=== PATIENT | male | born 1990 | race Asian ===

== ENCOUNTER 2018-04-25 11:47 | Observation (INO) | payer BC ==
[2018-04-25 13:13] LABS: Protime INR 0.93
[2018-04-25 13:14] LABS: Absolute Lymphocytes (CBC) 3.9 K/uL (0.7-4.9); Absolute Monocytes 0.8 K/uL (0.1-1.3); Absolute Neutrophil 9.8 K/uL (1.8-8.0); Basophils % 0.3 % (0-1.3); Eosinophils % 0.8 % (0-4.4); Hematocrit 48.7 % (39.6-49.0); Lymphocytes % 26.4 % (15.3-44.8); MCH 25.3 pg (27.0-35.0); MCV 76.8 fL (80-100); MPV 9.2 fL (7.6-11.3); Monocytes % 5.6 % (3.3-12.3); RBC Red Blood Cell Count 6.34 M/uL (4.33-5.43)
[2018-04-25 13:34] LABS: Barbiturates NEGATIVE (NEGATIVE); Benzodiazepines NEGATIVE (NEGATIVE); Cocaine NEGATIVE (NEGATIVE); METHAMPHETAM NEGATIVE (NEGATIVE); Methadone NEGATIVE (NEGATIVE); Opiates NEGATIVE (NEGATIVE); Phencyclidine NEGATIVE (NEGATIVE); THC Cannibis NEGATIVE (NEGATIVE)
[2018-04-25 13:35] LABS: Urine Blood NEGATIVE (NEG); Urine Glucose NEGATIVE (NEG); Urine Protein NEGATIVE (NEG); Urine Specific Gravity 1.025 (1.005-1.030)
[2018-04-25 13:43] LABS: ALT/SGPT 51 U/L (12-78); AST/SGOT 32 U/L (15-37); BUN Blood Urea Nitrogen 13 mg/dL (7-18); Bicarbonate 25 mmol/L (21-32); Glucose Level 120 mg/dL (74-106); Potassium 3.8 mmol/L (3.5-5.1); Sodium Level 137 mmol/L (136-145)
[2018-04-25 13:44] LABS: Albumin 4.3 g/dL (3.4-5.0); Alkaline Phosphatase 80 U/L (45-117); Bilirubin Direct < 0.1 mg/dL (0-0.2); Bilirubin Total 0.2 mg/dL (0.2-1.0); Lipase 201 U/L (73-393); Magnesium 2.5 mg/dL (1.8-2.4); NT PRO-BNP 45 pg/mL (<125); Protein, Total 7.8 g/dL (6.4-8.2); Troponin (Emerg Dept Use Only) < 0.02 ng/mL (0.0-0.045)
--- NOTE | 2018-04-25 14:08 | RAD REPORT ---
EXAM DESCRIPTION: RAD - Chest Single View - 04/25/2018 1:26 pm CLINICAL HISTORY: Right-sided chest pain COMPARISON: None. TECHNIQUE: AP portable chest image was obtained 1316 hours . FINDINGS: Lungs are clear. Heart and vasculature are normal. No measurable pleural effusion and no p neumothorax. No acute bony abnormality seen. No acute aortic findings suspected. IMPRESSION: No acute cardiopulmonary process.
[2018-04-25] MEDS ORDERED: ASPIRIN 81 MG CHEWABLE TABLET ONE (14:13)
[2018-04-25] MEDS ORDERED: MORPHINE 4 MG/ML SYR ONE (14:14)
[2018-04-25] MEDS ORDERED: NA CHLORIDE 0.9% 500 ML ONE (14:14)
[2018-04-25] MEDS ORDERED: ONDANSETRON 4 MG/2 ML VIAL ONE (14:14)
[2018-04-25] MEDS ORDERED: FAMOTIDINE 20 MG/2 ML VIAL IV ONE (14:14)
--- NOTE | 2018-04-25 14:43 | RAD REPORT ---
EXAM DESCRIPTION: CT - Angio Aorta For Dissection - 04/25/2018 2:18 pm CLINICAL HISTORY: Right-sided chest pain radiating to the back COMPARISON: Chest films same date TECHNIQUE: Dynamically enhanced 3 mm thick images of the chest were obtained during administration o f approximately 150mL Isovue 370 IV contrast. Coronal and oblique MIP reconstruction images were gene rated and reviewed. Exam utilizes a protocol to evaluate the pulmonary arterial tree. All CT scans are performed using dose optimization technique as appropriate and may include automated exposure control or mA/KV adjustment according to patient size. FINDINGS: No pulmonary emboli are identified. The aorta as imaged shows no acute or suspicious finding. No pericardial thickening or effusion. No infiltrate or mass in the lung parenchyma. No pleural effusion or pleural thickening. No mediastinal or hilar suspicious masses. No chest wall masses or abnormal axillary lymphadenopathy. Limited upper abdomen imaging shows borderline or mild fatty infiltration of the liver. No other acut e or significant upper abdomen finding. PE protocol does not optimally imaged the upper abdomen struc tures. IMPRESSION: No pulmonary emboli identified. No other significant or suspicious findings.
--- NOTE | 2018-04-25 14:52 | ER ---
Nurse's Notes [facility] Name: Isreal Santos Age: 27 yrs Sex: Male : 1990 Arrival Date: 04/25/2018 Time: 11:51 Bed 8 Private MD: Becca Ramos K Diagnosis: Chest pain, unspecified Presentation: 04/25 11:59 Presenting complaint: Patient states: R sided chest pain that radiates to back that ph began this morning, also c/o slight SOB, denies palpitations, N/V. Transition of care: patient was not received from another setting of care. Onset of symptoms was April 25, 2018. Care prior to arrival: None. 11:59 Method Of Arrival: Ambulatory ph 11:59 Acuity: DEVIKA 3 ph 12:00 Risk Assessment: Do you want to hurt yourself or someone else? Patient reports no iw desire to harm self or others. Initial Sepsis Screen: Does the patient meet any 2 criteria? No. Patient's initial sepsis screen is negative. Does the patient have a suspected source of infection? No. Patient's initial sepsis screen is negative. Historical: - Allergies: 12:01 No Known Allergies; ph - Home Meds: 12:01 None [Active]; ph - PMHx: 12:01 None; ph - PSHx: 12:01 None; ph - Immunization history:: Adult Immunizations unknown. - Social history:: Smoking status: Patient uses tobacco products, smokes one pack cigarettes per day. - Ebola Screening: : No symptoms or risks identified at this time. - Family history:: not pertinent. Screenin:10 Abuse screen: Denies threats or abuse. Denies injuries from another. Nutritional iw screening: No deficits noted. Tuberculosis screening: No symptoms or risk factors identified. Fall Risk IV access (20 points). Assessment: 13:08 General: Appears in no apparent distress. comfortable, Behavior is calm, cooperative. iw Pain: Complains of pain in anterior aspect of right upper chest Pain radiates to right scapular area Pain began 4 hours ago. Is continuous. Neuro: Level of Consciousness is awake, alert, obeys commands, Oriented to person, place, time, situation, Moves all extremities. Full function. Cardiovascular: Heart tones S1 S2 present Capillary refill < 3 seconds in bilateral fingers Patient's skin is warm and dry. Respiratory: Airway is patent Respiratory effort is even, unlabored. GI: Abdomen is flat, non-distended. Derm: Skin is intact, is healthy with good turgor. 14:30 Reassessment: Patient appears in no apparent distress at this time. Patient and/or iw family updated on plan of care and expected duration. Pain level reassessed. Patient is alert, oriented x 3, equal unlabored respirations, skin warm/dry/pink. pt states chest pain has improved just feels like pressure, 1/10 Patient states feeling better. 15:55 Reassessment: Patient appears in no apparent distress at this time. Patient and/or iw family updated on plan of care and expected duration. Pain level reassessed. Patient is alert, oriented x 3, equal unlabored respirations, skin warm/dry/pink. Patient denies pain at this time. Patient states feeling better. Patient states symptoms have improved. Vital Signs: 12:00 BP 133 / 89; Pulse 82; Resp 18; Temp 98.1; Pulse Ox 99% on R/A; Weight 77.56 kg; Height ph 5 ft. 7 in. (170.18 cm); Pain 1/10; 14:31 BP 123 / 85; Pulse 63; Resp 16; Pulse Ox 98% on R/A; Pain 1/10; iw 12:00 Body Mass Index 26.78 (77.56 kg, 170.18 cm) ph ED Course: 11:51 Patient arrived in ED. as 11:51 Becca Ramos MD is Private Physician. as 12:00 Triage completed. ph 12:01 Arm band placed on. ph 12:03 Patient placed in waiting room, Patient notified of wait time. EKG completed in triage. ph Results shown to MD. 12:06 EKG done, by ED staff, reviewed by Kaiden Hull MD. dh3 12:24 Kaiden Hull MD is Attending Physician. dieudonne 12:30 Patient has correct armband on for positive identification. security monitor on. Pulse iw ox on. NIBP on. 13:08 Mirela Swenson, NINA is Primary Nurse. iw 13:10 Initial lab(s) drawn, by md, sent to lab. Inserted saline lock: 20 gauge in right iw antecubital area, using aseptic technique. Blood collected. 13:26 X-ray completed. Portable x-ray completed in exam room. Patient tolerated procedure az well. 13:26 XRAY Chest (1 view) In Process Unspecified. EDMS 14:[address] via stretcher. nj 14:15 Echocardiogram with doppler completed by equipment engineering technician. 14:18 CT completed. Patient tolerated procedure well. Patient moved back from CT. nj 14:18 CT Aorta for Dissection In Process Unspecified. EDMS 14:32 Repeat lab(s) drawn. by md, sent to lab. Patient maintains SpO2 saturation greater than iw 95% on room air. 14:51 Denis Badillo MD is Hospitalizing Provider. [facility] 15:02 EKG done, by collision repair technician. reviewed by Kaiden Hull MD Repeat EKG. at1 17:58 No provider procedures requiring assistance completed. Patient admitted, IV remains in iw place. Administered Medications: 14:10 Drug: NS 0.9% 1000 ml Route: IV; Rate: 125 ml/hr; Site: right antecubital; iw 14:10 Drug: Aspirin 162 mg Route: PO; iw 14:10 Not Given (Patient Refused): Pepcid 20 mg IVP once iw 14:10 Not Given (Patient Refused): morphine 2 mg IVP once iw 14:10 Not Given (Patient Refused): morphine 2 mg IVP once iw 14:10 Not Given (Patient Refused): Zofran 4 mg IVP once; over 2 minutes iw 16:15 Drug: Lopressor 25 mg Route: PO; iw 17:00 Follow up: Response: No adverse reaction iw 16:15 Drug: Lovenox 1 mg/kg Route: Sub-Q; Site: right lower abdomen; iw 17:15 Follow up: Response: No adverse reaction iw 16:37 Not Given (Other Intervention Used): Zocor 40 mg PO once iw 16:37 Drug: Lipitor 20 mg Route: PO; iw 17:00 Follow up: Response: No adverse reaction iw 17:15 Not Given (Patient Refused): morphine 2 mg IVP once iw 17:16 Not Given (Patient Refused): Zofran 4 mg IVP once; over 2 minutes iw Outcome: 14:51 Decision to Hospitalize by Provider. dieudonne 17:58 Admitted to Tele accompanied by tech, via wheelchair, room 228, Report called to iw NINA James 17:58 Condition: good 17:58 Discharge instructions given to patient, family, Instructed on the need for admit. 18:07 Patient left the ED. iw Signatures: Dispatcher [employer] EDMI Kaiden Hull MD MD cha Martinez, Amelia as Williams, Irene, RN RN Dyan Romo, food mixer assembler EKG Tat1 Josefina Ortiz Patricia, RN RN ph Jordan, Kane Santos, [place] [id number] Heather Cherry
--- NOTE | 2018-04-25 14:52 | EDPHYS ---
Physician Documentation [facility] Name: Isreal Santos Age: 27 yrs Sex: Male : 1990 Arrival Date: 04/25/2018 Time: 11:51 Bed 8 Private MD: Becca Ramos K ED Physician Kaiden uHll HPI: 04/25 14:46 This 27 yrs old Male presents to ER via Ambulatory with complaints of Chest Pain, dieudonne Back Pain. 14:46 The patient or guardian reports chest pain that is located primarily in the anterior dieudonne chest wall, right. The pain radiates to Associated signs and symptoms: The patient has no apparent associated signs or symptoms. The chest pain is described as sharp. Modifying factors: The symptoms are alleviated by nothing. the symptoms are aggravated by nothing. Severity of pain: At its worst the pain was moderate in the emergency department the pain has improved moderately. The patient has not experienced similar symptoms in the past. Historical: - Allergies: 12:01 No Known Allergies; ph - Home Meds: 12:01 None [Active]; ph - PMHx: 12:01 None; ph - PSHx: 12:01 None; ph - Immunization history:: Adult Immunizations unknown. - Social history:: Smoking status: Patient uses tobacco products, smokes one pack cigarettes per day. - Ebola Screening: : No symptoms or risks identified at this time. - Family history:: not pertinent. ROS: 14:46 Constitutional: Negative for fever, chills, and weight loss, Eyes: Negative for injury, dieudonne pain, redness, and discharge, ENT: Negative for injury, pain, and discharge, Neck: Negative for injury, pain, and swelling, Respiratory: Negative for shortness of breath, cough, wheezing, and pleuritic chest pain, Abdomen/GI: Negative for abdominal pain, nausea, vomiting, diarrhea, and constipation, Back: Negative for injury and pain, : Negative for injury, bleeding, discharge, and swelling, MS/Extremity: Negative for injury and deformity, Skin: Negative for injury, rash, and discoloration, Neuro: Negative for headache, weakness, numbness, tingling, and seizure, Psych: Negative for depression, anxiety, suicide ideation, homicidal ideation, and hallucinations, Allergy/Immunology: Negative for hives, rash, and allergies, Endocrine: Negative for neck swelling, polydipsia, polyuria, polyphagia, and marked weight changes, Hematologic/Lymphatic: Negative for swollen nodes, abnormal bleeding, and unusual bruising. 14:46 Cardiovascular: Positive for chest pain. Exam: 14:46 Constitutional: This is a well developed, well nourished patient who is awake, alert, dieudonne and in no acute distress. Head/Face: Normocephalic, atraumatic. Eyes: Pupils equal round and reactive to light, extra-ocular motions intact. Lids and lashes normal. Conjunctiva and sclera are non-icteric and not injected. Cornea within normal limits. Periorbital areas with no swelling, redness, or edema. ENT: Nares patent. No nasal discharge, no septal abnormalities noted. Tympanic membranes are normal and external auditory canals are clear. Oropharynx with no redness, swelling, or masses, exudates, or evidence of obstruction, uvula midline. Mucous membranes moist. Neck: Trachea midline, no thyromegaly or masses palpated, and no cervical lymphadenopathy. Supple, full range of motion without nuchal rigidity, or vertebral point tenderness. No Meningismus. Chest/axilla: Normal chest wall appearance and motion. Nontender with no deformity. No lesions are appreciated. Cardiovascular: Regular rate and rhythm with a normal S1 and S2. No gallops, murmurs, or rubs. Normal PMI, no JVD. No pulse deficits. Respiratory: Lungs have equal breath sounds bilaterally, clear to auscultation and percussion. No rales, rhonchi or wheezes noted. No increased work of breathing, no retractions or nasal flaring. Abdomen/GI: Soft, non-tender, with normal bowel sounds. No distension or tympany. No guarding or rebound. No evidence of tenderness throughout. Back: No spinal tenderness. No costovertebral tenderness. Full range of motion. Male : Normal genitalia with no discharge or lesions. Skin: Warm, dry with normal turgor. Normal color with no rashes, no lesions, and no evidence of cellulitis. MS/ Extremity: Pulses equal, no cyanosis. Neurovascular intact. Full, normal range of motion. Neuro: Awake and alert, GCS 15, oriented to person, place, time, and situation. Cranial nerves II-XII grossly intact. Motor strength 5/5 in all extremities. Sensory grossly intact. Cerebellar exam normal. Normal gait. Psych: Awake, alert, with orientation to person, place and time. Behavior, mood, and affect are within normal limits. 14:46 Musculoskeletal/extremity: Exam is negative for DVT Exam: No signs of deep vein thrombosis. no pain, no swelling, no tenderness, negative Homans' sign noted on exam, no appreciated bluish discoloration, no erythema, no increased warmth. Vital Signs: 12:00 BP 133 / 89; Pulse 82; Resp 18; Temp 98.1; Pulse Ox 99% on R/A; Weight 77.56 kg; Height ph 5 ft. 7 in. (170.18 cm); Pain 1/10; 14:31 BP 123 / 85; Pulse 63; Resp 16; Pulse Ox 98% on R/A; Pain 1/10; iw 12:00 Body Mass Index 26.78 (77.56 kg, 170.18 cm) ph MDM: 12:24 Patient medically screened. [facility] 14:48 Data reviewed: vital signs, nurses notes, lab test result(s), EKG, radiologic studies, [facility] CT scan, plain films. 04/25 12:23 Order name: Basic Metabolic Panel; Complete Time: 13:44 [facility] 04/25 12:23 Order name: CBC with Diff; Complete Time: 13:44 [facility] 04/25 12:23 Order name: LFT's; Complete Time: 13:44 dieudonne 04/25 12:23 Order name: Magnesium; Complete Time: 13:44 [facility] 04/25 12:23 Order name: NT PRO-BNP; Complete Time: 13:44 [facility] 04/25 12:23 Order name: PT-INR; Complete Time: 13:44 [facility] 04/25 12:23 Order name: Troponin (emerg Dept Use Only); Complete Time: 13:44 dieudonne 04/25 12:23 Order name: Lipase; Complete Time: 13:44 [facility] 04/25 12:23 Order name: UDS; Complete Time: 13:45 [facility] 04/25 13:04 Order name: Urine Dipstick--Ancillary (enter results) em1 04/25 14:15 Order name: Troponin (emerg Dept Use Only): now; Complete Time: 15:04 [facility] 04/25 14:59 Order name: Basic Metabolic Panel EDMS 04/25 14:59 Order name: Basic Metabolic Panel EDMS 04/25 14:59 Order name: CBC with Automated Diff [facility] 04/25 12:23 Order name: XRAY Chest (1 view); Complete Time: 14:33 [facility] 04/25 12:23 Order name: Echo w/ Doppler [facility] 04/25 13:47 Order name: CT Aorta for Dissection; Complete Time: 14:45 [facility] 04/25 14:59 Order name: CBC with Automated Diff [facility] 04/25 14:59 Order name: Troponin I [facility] 04/25 14:59 Order name: Troponin I [facility] 04/25 14:59 Order name: Troponin I [facility] 04/25 15:06 Order name: Lipid Profile [facility] 04/25 12:23 Order name: EKG; Complete Time: 12:24 [facility] 04/25 12:23 Order name: Cardiac monitoring; Complete Time: 14:20 [facility] 04/25 12:23 Order name: EKG - Nurse/Tech; Complete Time: 13:15 [facility] 04/25 12:23 Order name: IV Saline Lock; Complete Time: 13:15 [facility] 04/25 12:23 Order name: Labs collected and sent; Complete Time: 13:15 [facility] 04/25 12:23 Order name: O2 Per Protocol; Complete Time: 13:15 [facility] 04/25 12:23 Order name: O2 Sat Monitoring; Complete Time: 13:15 [facility] 04/25 13:05 Order name: Urine Dipstick-Ancillary (obtain specimen); Complete Time: 13:05 [facility] 04/25 14:59 Order name: CONS Physician Consult [facility] 04/25 14:59 Order name: CONS Physician Consult [facility] 04/25 14:59 Order name: Regular [facility] 04/25 14:59 Order name: EKG Electrocardiogram [facility] 04/25 14:59 Order name: EKG Electrocardiogram [facility] 04/25 14:59 Order name: EKG Electrocardiogram [facility] 04/25 14:59 Order name: EKG Electrocardiogram [facility] Administered Medications: 14:10 Drug: NS 0.9% 1000 ml Route: IV; Rate: 125 ml/hr; Site: right antecubital; iw 14:10 Drug: Aspirin 162 mg Route: PO; iw 14:10 Not Given (Patient Refused): Pepcid 20 mg IVP once iw 14:10 Not Given (Patient Refused): morphine 2 mg IVP once iw 14:10 Not Given (Patient Refused): morphine 2 mg IVP once iw 14:10 Not Given (Patient Refused): Zofran 4 mg IVP once; over 2 minutes iw 16:15 Drug: Lopressor 25 mg Route: PO; iw 17:00 Follow up: Response: No adverse reaction iw 16:15 Drug: Lovenox 1 mg/kg Route: Sub-Q; Site: right lower abdomen; iw 17:15 Follow up: Response: No adverse reaction iw 16:37 Not Given (Other Intervention Used): Zocor 40 mg PO once iw 16:37 Drug: Lipitor 20 mg Route: PO; iw 17:00 Follow up: Response: No adverse reaction iw 17:15 Not Given (Patient Refused): morphine 2 mg IVP once iw 17:16 Not Given (Patient Refused): Zofran 4 mg IVP once; over 2 minutes iw Disposition: 04/25/18 14:51 Hospitalization ordered by Denis Badillo for Observation. Preliminary diagnosis is Chest pain, unspecified. - Bed requested for Telemetry/MedSurg (observation). - Status is Observation. iw - Condition is Stable. - Problem is new. - Symptoms have improved. UTI on Admission? No Signatures: Dispatcher [employer] EDMS Mary Graff Corey, MD MD cha Williams, Irene, NINA RN iw Gucci Quinn Judie Shah RN RN ph Corrections: (The following items were deleted from the chart) 17:25 14:51 Hospitalization Ordered by Denis Badillo MD for Observation. Preliminary diagnosis bd is Chest pain, unspecified. Bed requested for Telemetry/MedSurg (observation). Status is Observation. Condition is Stable. Problem is new. Symptoms have improved. UTI on Admission? No. dieudonne 18:07 17:25 04/25/2018 14:51 Hospitalization Ordered by Denis Badillo MD for Observation. iw Preliminary diagnosis is Chest pain, unspecified. Bed requested for Telemetry/MedSurg (observation). Status is Observation. Condition is Stable. Problem is new. Symptoms have improved. UTI on Admission? No. bd
[2018-04-25] MEDS ORDERED: ACETAMINOPHEN 500 MG TAB PO PRN (14:54)
[2018-04-25] MEDS ORDERED: MORPHINE 4 MG/ML SYR IV PRN (14:54)
[2018-04-25] MEDS ORDERED: ONDANSETRON 4 MG/2 ML VIAL IV PRN (14:54)
[2018-04-25] MEDS: ENOXAPARIN 80 MG/0.8 ML SQ SCH ×2 (15:00→20:03)
--- NOTE | 2018-04-25 15:47 | ECHO ---
HEIGHT: 5 ft 7 in WEIGHT: 170 lb oz DATE OF STUDY: 04/25/[address]: Kaiden Hull MD 2-DIMENSIONAL: YES M.MODE: YES DOPPLER: YES COLOR FLOW: YES TDS: NO PORTABLE: NO DEFINITY: NO BUBBLE STUDY: NO DIAGNOSIS: CHEST PAIN CARDIAC HISTORY: CATHERIZATION: NO SURGERY: NO PROSTHETIC VALVE: NO PACEMAKER: NO MEASUREMENTS (cm) DIASTOLIC (NORMALS) SYSTOLIC (NORMALS) IVSd 0.9 (0.6-1.2) LA Diam 3.5 (1.9-4.0) LVEF 58% LVIDd 4.3 (3.5-5.7) LVIDs 3.0 (2.0-3.5) %FS 31% LVPWd 1.0 (0.6-1.2) Ao Diam 2.7 (2.0-3.7) 2 DIMENSIONAL ASSESSMENT: RIGHT ATRIUM: NORMAL LEFT ATRIUM: NORMAL RIGHT VENTRICLE: NORMAL LEFT VENTRICLE: NORMAL TRICUSPID VALVE: NORMAL MITRAL VALVE: NORMAL PULMONIC VALVE: NORMAL AORTIC VALVE: NORMAL PERICARDIAL EFFUSION: NONE AORTIC ROOT: NORMAL LEFT VENTRICULAR WALL MOTION: NORMAL DOPPLER/COLOR FLOW: PHYSIOLOGIC TRICUSPID REGURGITATION. NORMAL RIGHT VENTRICULAR SYSTOLIC PRESSURE. COMMENTS: NORMAL 2D ECHOCARDIOGRAM WITH DOPPLER. TECHNOLOGIST: Roxanne BAJWA
--- NOTE | 2018-04-25 15:48 | EKG ---
Test Date: 2018-04-25 Test Time: 12:04:26 Bed And Breakfast Operator: NILO MEASUREMENT RESULTS: Intervals: Rate: 68 FL: 134 QRSD: 88 QT: 378 QTc: 401 [place]: P: 38 FL: 134 QRS: 53 T: 29 INTERPRETIVE STATEMENTS: Normal sinus rhythm with sinus arrhythmia Normal ECG No previous ECG available for comparison Electronically Signed On 04-25-18 15:47:13 CDT by Wesly Magallanes
[2018-04-25] MEDS ORDERED: METOPROLOL TAR 25 MG TAB ONE (16:13)
[2018-04-25] MEDS ORDERED: ENOXAPARIN 80 MG/0.8 ML SQ ONE (16:14)
[2018-04-25] MEDS ORDERED: ATORVASTATIN 20 MG TAB ONE (16:40)
[2018-04-25] MEDS ORDERED: ATORVASTATIN 20 MG TAB PO ONE (17:00)
[2018-04-25] MEDS: METOPROLOL TAR 25 MG TAB PO SCH (18:00)
[2018-04-25] MEDS: FAMOTIDINE 20 MG/2 ML VIAL IV SCH (20:04)
[2018-04-25 20:18] LABS: HDL Cholesterol 31 mg/dL (40-60); LDL Cholesterol, Calculated 85 (<130); Troponin I < 0.02 ng/mL (0.0-0.045)
--- NOTE | 2018-04-25 20:49 | P.HP ---
Certification for Inpatient Patient admitted to: Observation With expected LOS: <2 Midnights Practitioner: I am a practitioner with admitting privileges, knowledge of patient current condition, hospital course, and medical plan of care. Services: Services provided to patient in accordance with Admission requirements found in Title 42 Section 412.3 of the Code of Federal Regulations Patient History Date of Service: 04/25/18 Reason for admission: RIGHT SIDE CHEST PAIN AND NECK PAIN History of Present Illness: ANIYAH IS A HEALTHY MAN WITH SMOKING HISTORY OF PACK A DAY COMES WITH R SIDE CHEST PAIN WITH RADIATION TO R SIDE OF NECK AND BACK. PAIN NOW HAS RESOLVED. HIS WBC COUNT IS MILD HIGH. Allergies No Known Allergies Allergy (Unverified 04/25/18 15:33) Home Medications: NK [No Home Meds] 04/25/18 - Social History Smoking Status: Current every day smoker Alcohol use: No CD- Drugs: No Caffeine use: Yes Review of Systems 10-point ROS is otherwise unremarkable Physical Examination - Vital Signs Temperature: 98.1 F Blood Pressure: 118/83 Pulse: 54 Respirations: 18 Pulse Ox (%): 98 - Physical Exam General: Alert, In no apparent distress HEENT: Atraumatic, PERRLA, Mucous membr. moist/pink, EOMI, Sclerae nonicteric Neck: Supple, 2+ carotid pulse no bruit, No LAD, Without JVD or thyroid abnormality Respiratory: Clear to auscultation bilaterally, Normal air movement Cardiovascular: Regular rate/rhythm, Normal S1 S2 Gastrointestinal: Normal bowel sounds, No tenderness Musculoskeletal: No tenderness Integumentary: No rashes Neurological: Normal gait, Normal speech, Normal strength at 5/5 x4 extr, Normal tone, Normal affect Lymphatics: No axilla or inguinal lymphadenopathy - Studies Laboratory Data (last 24 hrs) 04/25/18 12:55: PT 11.0, INR 0.93 04/25/18 12:55: WBC 14.7 H, Hgb 16.0, Hct 48.7, Plt Count 216 04/25/18 12:55: Sodium 137, Potassium 3.8, BUN 13, Creatinine 1.20, Glucose 120 H, Magnesium 2.5 H, Total Bilirubin 0.2, AST 32, ALT 51, Alkaline Phosphatase 80 , Lipase 201 Assessment and Plan - Problems (Diagnosis) (1) Chest pain Current Visit: Yes Status: Acute Plan: YOUNG AGE SMOKER. CARDIAC ISSUES ARE LESS LIKELY. HE NEEDS TO QUIT SMOKING AND I HAVE ADVISED HOW. HE KNOWS THE COMPLICATIONS OF SMOKING. (2) Leukocytosis Current Visit: Yes Status: Acute Plan: SONOGRAM OF ABDOMEN GB INFECTION OR STONES CAN GIVE PAIN ON RIGHT UPPER SIDE OF BODY. - Advance Directives Does patient have a Living Will: No Does patient have a Durable POA for Healthcare: No
[2018-04-25] MEDS: CIPROFLOXACIN 400mg IV 400 MG/200 ML BAG IV SCH (21:20)
--- NOTE | 2018-04-26 02:57 | CON ---
Date of Consultation: 04/25/2018 Reason For Consultation: Chest pain. History Of Present Illness: Mr. Santos is a 27-year-old who was admitted for chest pain that is sh maryellen, pleuritic, radiating to the right back. No nausea, vomiting, diaphoresis, PND, orthopnea, pedal edema, palpitations, or syncope. His workup so far has been negative including a chest x-ray, echoc ardiogram, EKG. He had a white count of 14,700, otherwise everything else looked normal. Past Medical History: Negative. Family History: Negative. Allergies: NONE. Medications At Home: None. Review of Systems: Positive for high stress level. Social History: Positive for excessive use of caffeine and energy drinks. Physical Examination: Vital Signs: Stable, afebrile. HEENT: Negative. Neck: Supple. No bruit. Chest: Clear. Cardiac: Regular rhythm and rate. No murmurs, gallops, or rubs. Abdomen: Benign. Extremities: No clubbing, cyanosis, or edema. Diagnostic Data: As stated earlier. Impression And Plan: Atypical chest pain, most likely musculoskeletal or pleuritic. The patient has a very low cardiac risk profile, although he does smoke. He is still at very low risk at this age. He was advised not to use much caffeine and energy drinks because he does occasionally have some pal pitations. One thing he did mention was kind of interesting that he had an episode of some headache, dizziness, and loss of hearing on 1 side, this may have been secondary to hypertension, but was not documented. He has a stress test that is ordered for tomorrow and we will see what that shows prior to making final decisions. If his symptoms reoccur certainly from dizziness and hearing loss standpo int, I will suggest he sees Neurology. FRENCH/HUSSAIN Voice ID: [id number] Report ID: [id number]
[2018-04-26] MEDS: METOPROLOL TAR 25 MG TAB PO SCH (05:21)
[2018-04-26 06:02] LABS: Absolute Lymphocytes (CBC) 3.8 K/uL (0.7-4.9); Absolute Neutrophil 5.4 K/uL (1.8-8.0); Basophils % 0.3 % (0-1.3); Eosinophils % 1.3 % (0-4.4); Hematocrit 49.6 % (39.6-49.0); Lymphocytes % 36.7 % (15.3-44.8); MCH 25.4 pg (27.0-35.0); MCV 76.9 fL (80-100); MPV 8.9 fL (7.6-11.3); Monocytes % 9.3 % (3.3-12.3); RBC Red Blood Cell Count 6.44 M/uL (4.33-5.43)
[2018-04-26 06:19] LABS: Potassium 4.5 mmol/L (3.5-5.1)
--- NOTE | 2018-04-26 07:02 | EKG ---
Test Date: 2018-04-25 Test Time: 14:57:37 Product Introduction Manager: PETRA MEASUREMENT RESULTS: Intervals: Rate: 58 CO: 130 QRSD: 90 QT: 414 QTc: 406 [place]: P: 36 CO: 130 QRS: 55 T: 22 INTERPRETIVE STATEMENTS: Sinus bradycardia with sinus arrhythmia Nonspecific ST and T wave abnormality Abnormal ECG Compared to ECG 04/25/2018 12:04:26 ST (T wave) deviation now present Sinus rhythm no longer present Electronically Signed On 04-26-18 07:01:37 CDT by Wesly Magallanes
[2018-04-26] MEDS: ENOXAPARIN 80 MG/0.8 ML SQ SCH (08:51)
[2018-04-26] MEDS: CIPROFLOXACIN 400mg IV 400 MG/200 ML BAG IV SCH (08:51)
[2018-04-26] MEDS: FAMOTIDINE 20 MG/2 ML VIAL IV SCH (08:52)
[2018-04-26] MEDS ORDERED: NICOTINE 14 MG/PAT TD SCH (09:00)
[2018-04-26] MEDS ORDERED: ASPIRIN EC 81 MG TAB PO SCH (09:00)
--- NOTE | 2018-04-26 09:15 | RAD REPORT ---
EXAM DESCRIPTION: US - Abdomen Exam Complete - 04/26/2018 7:50 am CLINICAL HISTORY: Abdominal pain COMPARISON: April 25, 2018 cat scan FINDINGS: The liver has an increased echotexture. A 2 centimeter hypo to isoechoic structure is pres ent within the right lobe. A gallstone is not seen. The gallbladder wall is not thickened. The biliary tree is normal caliber. The pancreas is normal in size and echotexture The right kidney measures 12 centimeters with a normal echotexture. The left kidney measures 11 centimeters with a normal echotexture. The spleen measures 9 centimeters. The abdominal aorta and inferior vena cava appear unremarkable IMPRESSION: Increased hepatic echotexture consistent with fatty infiltration 2 centimeter hypo to isoechoic structure within the right lobe of the liver probably represents an ar ea of focal fatty sparing. A mass is considered less likely. It is recommended that the patient have a followup ultrasound in 3 months to assess stability
--- NOTE | 2018-04-26 13:00 | P.DS ---
Admission Date: 04/25/18 Discharge Date: 04/26/18 Disposition: ROUTINE DISCHARGE Discharge Condition: FAIR Reason for Admission: RIGHT SIDE CHEST PAIN AND NECK PAIN - Problems (1) Chest pain Onset Date: 04/26/18 Current Visit: Yes Status: Acute (2) Leukocytosis Onset Date: 04/26/18 Current Visit: Yes Status: Acute Brief History of Present Illness: ANIYAH IS A HEALTHY MAN WITH SMOKING HISTORY OF PACK A DAY COMES WITH R SIDE CHEST PAIN WITH RADIATION TO R SIDE OF NECK AND BACK. PAIN NOW HAS RESOLVED. HIS WBC COUNT IS MILD HIGH. MR. JESSICA HAS ATYPICAL PAIN. PAIN HAS RESOLVED. HE HAS NO SYMPTOMS. GB SHOWS NO STONES OR THICKENING. HE HAS FATTY LIVER AND A LESION O LIVER THAT NEEDS FU WITH GI OR GAMMA OPERATOR. THIS CAN BE DONE OUTPATIENT. I HAVE TOLD HIM TO TALK TO DR RAMOS AND TAKE MY NOTE TO HER. HE CAN DO MORE WORK UP LIKE HIDA SCAN AND ST TEST IF PAIN CONTINUES. HE WILL QUIT SMOKING WITH USE OF PATCHES. Vital Signs/Physical Exam: Temp Pulse Resp BP Pulse Ox 97.6 F 66 20 120/84 99 04/26/18 08:00 04/26/18 08:00 04/26/18 08:00 04/26/18 08:00 04/26/18 08:00 Laboratory Data at Discharge: WBC 10.3 K/uL (4.3-10.9) D 04/26/18 05:42 Hgb 16.4 g/dL (13.6-17.9) 04/26/18 05:42 Hct 49.6 % (39.6-49.0) H 04/26/18 05:42 Plt Count 200 K/uL (152-406) 04/26/18 05:42 PT 11.0 SECONDS (9.5-12.5) 04/25/18 12:55 INR 0.93 04/25/18 12:55 Sodium 139 mmol/L (136-145) 04/26/18 05:42 Potassium 4.5 mmol/L (3.5-5.1) 04/26/18 05:42 BUN 15 mg/dL (7-18) 04/26/18 05:42 Creatinine 1.30 mg/dL (0.55-1.3) 04/26/18 05:42 Glucose 101 mg/dL (74-106) 04/26/18 05:42 Magnesium 2.5 mg/dL (1.8-2.4) H 04/25/18 12:55 Total Bilirubin 0.2 mg/dL (0.2-1.0) 04/25/18 12:55 AST 32 U/L (15-37) 04/25/18 12:55 ALT 51 U/L (12-78) 04/25/18 12:55 Alkaline Phosphatase 80 U/L (45-117) 04/25/18 12:55 Troponin I < 0.02 ng/mL (0.0-0.045) 04/25/18 19:40 Triglycerides 245 mg/dL (<150) H 04/25/18 19:40 Cholesterol 165 mg/dL (<200) 04/25/18 19:40 HDL Cholesterol 31 mg/dL (40-60) L 04/25/18 19:40 Cholesterol/HDL Ratio 5.32 04/25/18 19:40 Lipase 201 U/L (73-393) 04/25/18 12:55 Home Medications: NK [No Home Meds] 04/25/18 Patient Discharge Instructions: PLEASE TAKE THIS COPY TO DR. RAMOS. YOU MAY HAVE DYSFUNCTIONAL GALL BLADDER AND IF PAIN CONTINUES YOU REPORT TO DR. RAMOS OR A SURGEON RECOMMENDED BY HER. SONOGRAM SHOWS FATTY LIVER AND A SMALL SHADOW ON LIVER. THIS NEEDS FU BY DR RAMOS. SEE HER THIS WEEK FOR LETTER TO WORK. Followup: Becca Ramos MD [Primary Care Provider] -
--- NOTE | 2018-04-26 13:55 | EKG ---
Test Date: 2018-04-26 Test Time: 09:04:07 Electrical Instrument Maker: LILLY MEASUREMENT RESULTS: Intervals: Rate: 63 AK: 120 QRSD: 74 QT: 384 QTc: 392 [place]: P: 42 AK: 120 QRS: 62 T: 19 INTERPRETIVE STATEMENTS: Sinus rhythm with marked sinus arrhythmia Nonspecific T wave abnormality Abnormal ECG Compared to ECG 04/25/2018 14:57:37 T-wave abnormality now present Sinus bradycardia no longer present ST (T wave) deviation no longer present Electronically Signed On 04-26-18 13:53:12 CDT by Sorin South
== END 2018-04-26 13:15 | disposition home or self-care (01) ==
LOC: ER 11:47 → ERHOLD 14:52 → 2ND 18:01
PROVIDERS: ADMIT Internal Medicine; ATTEND Internal Medicine
DX: R07.89 Other chest pain (principal); D72.829 Elevated white blood cell count, unspecified; F17.210 Nicotine dependence, cigarettes, uncomplicated; K76.0 Fatty (change of) liver, not elsewhere classified; K76.9 Liver disease, unspecified
CPT/HCPCS: 36415; 71045; 71275; 74175; 76700; 80048; 80061; 80076; 80307; 81003; 83690; 83735; 83880; 84484; 85025; 85610; 93005; 93306; 96372; 99285; G0378; J0744; J1650; J2405; Q9967

== ENCOUNTER 2021-06-27 02:16 | Emergency (ER) | payer BC, SELFPAY ==
--- OUTSIDE RECORDS SUMMARY | 2021-06-27 02:19 | XMS REPORT | Continuity of Care Document ---
:1990 Author Organization [facility] t Address [address] [place] [address] [address]. River[address] [place] [address] Care Team Providers Name Role Phone Jesus Otero Primary Care Physician Samuel SCHUMACHER, H Attending Clinician Only, Test Attending Clinician Unavailable Juan SCHUMACHER, Michael Attending Clinician JUAN, Michael Attending Clinician Unavailable Doctor Unassigned, Name Attending Clinician Unavailable Problems This patient has no known problems. Allergies, Adverse Reactions, Alerts Allergy Allergy Status Severity Reaction(s) Onset Inactive Treating Comm ents Source Name Type Date Date Clinician NO KNOWN Drug Active Univers ALLERGIE Class ity of [facility] Social History Social Habit Start Date Stop Date Quantity Comments Source Sex Assigned At [birth year] [facility] 00:00:00 00:00:00 [facility] Smoking Status Start Date Stop Date Source Unknown if ever smoked [facility] Medications This patient has no known medications. Procedures Procedure Date / Time Performed Performing Clinician [facility] e ASSIGNMENT OF BENEFITS 2021-05-21 14:22:39 Doctor Unassigned, No [facility] Encounters Start End Encounter Admission Attending Care Care Encounter Source Date/Time Date/Time Type Type Clinicians Facility Department ID 2021-05-23 2021-05-23 Letter ARLEY Baker [id number] Univers 00:00:00 00:00:00 (Out) Nicholas FIORE [id number] i [facility] [id number] Justin as [phone] [address] 2021-05-21 2021-05-21 Laboratory Only, Adc [facility] [id number] Univers 08:45:03 09:00:03 Only Neo Martinez [id number] ity of [place] [id number] [place] [facility] [id number] [facility] [address] 2021-05-21 2021-05-21 Outpatient R [facility]AN [facility] [id number] Univers 08:00:00 08:00:00 ENO ity of [facility] 2021-05-21 2021-05-21 Letter ARLEY Baker [id number] Univers 00:00:00 00:00:00 (Out) Nicholas FIORE [id number] i ty of [facility] [id number] Justin as [id number] [facility] [address] 2021-05-21 2021-05-21 Orders Doctor ARLEY [id number] Univers 00:00:00 00:00:00 Only UnassignedADEBAYO [id number] ity of [place] [facility] [id number] Justin as [phone] [facility] [address] Results This patient has no known results.
[2021-06-27] MEDS ORDERED: IBUPROFEN 400 MG TAB ONE (06:03)
[2021-06-27] MEDS ORDERED: LIDOCAINE 1% 20 ML MDV ONE (06:03)
[2021-06-27] MEDS ORDERED: TETANUS & DIPHTHERIA TOX,ADULT 0.5 ML VIAL ONE (06:03)
--- NOTE | 2021-06-27 07:27 | EDPHYS ---
Physician Documentation [facility] Name: Isreal Santos Age: 30 yrs Sex: Male : 1990 Arrival Date: 06/27/2021 Time: 02:31 Bed 24 Private MD: ED Physician Poncho Castro HPI: 06/27 05:35 This 30 yrs old Male presents to ER via Ambulatory with complaints of Hand Injury.7 05:35 The patient or guardian reports injury, a laceration, irregular. The complaints affect mh7 the right hand. 05:35 Context: The problem was sustained at a Recreational facility, resulted from using own 7 fist to strike, Boxing game. 05:35 Onset: The symptoms/episode began/occurred this morning, today, at 01:00. Modifying mh7 factors: The symptoms are alleviated by nothing, the symptoms are aggravated by nothing. Associated signs and symptoms: Pertinent negatives: cyanosis distally, decreased sensation distally, fever, nausea, numbness distally, tingling distally, vomiting. Severity of symptoms: At their worst the symptoms were mild, earlier today, in the emergency department the symptoms are unchanged. Historical: - Allergies: 03:34 No Known Allergies; bb - Immunization history:: Adult Immunizations up to date, Pfizer x 2. - Social history:: Smoking status: Patient reports the use of cigarette tobacco products, denies chronic smoking, but will smoke occasionally. ROS: 05:35 Constitutional: Negative for fever, chills, and weight loss, Eyes: Negative for injury, mh7 pain, redness, and discharge, ENT: Negative for injury, pain, and discharge, Neck: Negative for injury, pain, and swelling, Cardiovascular: Negative for chest pain, palpitations, and edema, Respiratory: Negative for shortness of breath, cough, wheezing, and pleuritic chest pain, Abdomen/GI: Negative for abdominal pain, nausea, vomiting, diarrhea, and constipation, Back: Negative for injury and pain, : Negative for injury, bleeding, discharge, and swelling, Neuro: Negative for headache, weakness, numbness, tingling, and seizure, Psych: Negative for depression, anxiety, suicide ideation, homicidal ideation, and hallucinations, Allergy/Immunology: Negative for hives, rash, and allergies, Endocrine: Negative for neck swelling, polydipsia, polyuria, polyphagia, and marked weight changes, Hematologic/Lymphatic: Negative for swollen nodes, abnormal bleeding, and unusual bruising. Exam: 05:35 Constitutional: This is a well developed, well nourished patient who is awake, alert, mh7 and in no acute distress. Head/Face: Normocephalic, atraumatic. Neuro: Awake and alert, GCS 15, oriented to person, place, time, and situation. Cranial nerves II-XII grossly intact. Motor strength 5/5 in all extremities. Sensory grossly intact. Cerebellar exam normal. Normal gait. Psych: Awake, alert, with orientation to person, place and time. Behavior, mood, and affect are within normal limits. 05:35 Musculoskeletal/extremity: Extremities: noted in the Right hand, base of fifth digit: mh7 laceration, pain, tenderness, ROM: intact in all extremities, Circulation is intact in all extremities. Sensation intact. Compartment Syndrome exam of affected extremity: is normal. no numbness, no tingling, no sensation deficit, no palor, no weak pulses, Joints: All joints appear normal with full range of motion. Weight bearing: able to fully bear weight, without difficulty. 05:35 Skin: injury, laceration(s), the wound is approximately 2.5 cm(s), with a depth of mh7 0.2 cm(s), of the Right hand, base of fifth digit, that can be described as no foreign body, irregular, without bleeding. Vital Signs: 03:30 BP 143 / 88; Pulse 101; Resp 16 S; Temp 98.3(O); Pulse Ox 100% on R/A; Weight 78.47 kg bb (R); Height 5 ft. 8 in. (172.72 cm) (R); Pain 2/10; 08:19 BP 137 / 79; Pulse 81; Resp 17; Temp 98.5; Pulse Ox 99% ; bp 03:30 Body Mass Index 26.30 (78.47 kg, 172.72 cm) bb Laceration: 07:18 Wound Repair of 2cm ( 0.8in ) subcutaneous laceration to dorsal aspect of proximal jmm phalanx of right little finger. Distal neuro/vascular/tendon intact. Anesthesia: Local anesthetic administered with 2 mls of 1% lidocaine. Wound prep: Simple cleansing with betadine by nv. Skin closed with 4 5-0 Prolene using simple sutures and sterile technique. Patient tolerated well. MDM: 06:12 Patient medically screened. [facility] 07:19 Data reviewed: vital signs, nurses notes. Counseling: I had a detailed discussion with adonis the patient and/or guardian regarding: the historical points, exam findings, and any diagnostic results supporting the discharge/admit diagnosis, radiology results, the need for outpatient follow up, to return to the emergency department if symptoms worsen or persist or if there are any questions or concerns that arise at home. ED course: Patient denies fight bite. Will cover patient with antibiotics. Patient given strict return precautions for infection. Patient otherwise will follow with PCP or return to the ED for suture removal.. 06/27 03:37 Order name: XRAY Hand RIGHT 3 View 06/27 07:27 Order name: Finger Splint; Complete Time: 08:16 [facility] Administered Medications: 06:04 Drug: Motrin (ibuprofen) 800 mg Route: PO; bb 07:21 Follow up: Response: No adverse reaction bp 06:05 Drug: Tetanus-Diphtheria Toxoid Adult 0.5 ml {Career Technical Education Instructor: [employer]. Exp: bb 11/08/2022. Lot #: [id number]. } Route: IM; Site: right deltoid; 07:22 Follow up: Response: No adverse reaction bp 07:21 Drug: Lidocaine (1 %) 20 ml Volume: 20 ml; Route: Infiltration; bp Disposition: 19:25 Co-signature as Attending Physician, Poncho Castro MD. mh7 Disposition Summary: 06/27/21 07:27 Discharge Ordered Location: Home [facility] Condition: Stable [facility] Diagnosis - Finger Laceration [facility] Followup: [facility] - With: Private Physician - When: 7 - 10 days - Reason: Recheck today's complaints, Continuance of care, Staple/Suture removal, Re-evaluation by your physician Discharge Instructions: - Discharge Summary Sheet [facility] - Laceration Care, Adult [facility] Forms: - Medication Reconciliation Form [facility] - Thank You Letter [facility] - Antibiotic Education [facility] - Prescription Opioid Use [facility] Prescriptions: - Augmentin 875-125 mg Oral Tablet - take 1 tablet by ORAL route every 12 hours for 10 days; 20 tablet; Refills: 0, [facility] Product Selection Permitted Signatures: Dispatcher [employer] Author Hub EDMS MicAgustin buckley PA PA jmm Ballard, Brenda RN RN bb Leeroy Sanchez RN RN Poncho Torres MD MD mh7 Corrections: (The following items were deleted from the chart) 05:38 05:35 Context: The problem was sustained [facility]7
--- NOTE | 2021-06-27 07:27 | ER ---
Nurse's Notes [facility] Name: Isreal Santos Age: 30 yrs Sex: Male : 1990 Arrival Date: 06/27/2021 Time: 02: Bed 24 Private MD: Diagnosis: Finger Laceration Presentation: 06/27 03:30 Chief complaint: Patient states: he was at a bar playing a boxing game and injured his bb right hand earlier tonight. Coronavirus screen: At this time, the client does not indicate any symptoms associated with coronavirus-19. Ebola Screen: No symptoms or risks identified at this time. Initial Sepsis Screen: Does the patient meet any 2 criteria? No. Patient's initial sepsis screen is negative. Does the patient have a suspected source of infection? No. Patient's initial sepsis screen is negative. Risk Assessment: Do you want to hurt yourself or someone else? Patient reports no desire to harm self or others. Onset of symptoms was June 27, 2021. 03:30 Method Of Arrival: Ambulatory bb 03:30 Acuity: DEVIKA 3 bb Triage Assessment: 03:34 General: Appears in no apparent distress. Behavior is calm, cooperative. Pain: bb Complains of pain in right hand. Neuro: Level of Consciousness is awake, alert, obeys commands, Oriented to person, place, time, situation. Cardiovascular: Capillary refill < 3 seconds Patient's skin is warm and dry. Respiratory: Airway is patent Respiratory effort is even, unlabored. GI: No signs and/or symptoms were reported involving the gastrointestinal system. Derm: Skin is dry, Skin is normal, Skin temperature is warm. Musculoskeletal: laceration to right hand. Injury Description: blunt trauma. Historical: - Allergies: 03:34 No Known Allergies; bb - Immunization history:: Adult Immunizations up to date, Pfizer x 2. - Social history:: Smoking status: Patient reports the use of cigarette tobacco products, denies chronic smoking, but will smoke occasionally. Screenin:19 Abuse screen: Denies threats or abuse. Denies injuries from another. Nutritional bp screening: No deficits noted. Tuberculosis screening: No symptoms or risk factors identified. Fall Risk None identified. Assessment: 05:10 Reassessment: PT AMBULATORY FROM TRIAGE. bp 08:19 Reassessment: PT D/C HOME AMBULATORY, DX WITH FINGER LACERATION. bp Vital Signs: 03:30 BP 143 / 88; Pulse 101; Resp 16 S; Temp 98.3(O); Pulse Ox 100% on R/A; Weight 78.47 kg bb (R); Height 5 ft. 8 in. (172.72 cm) (R); Pain 2/10; 08:19 BP 137 / 79; Pulse 81; Resp 17; Temp 98.5; Pulse Ox 99% ; bp 03:30 Body Mass Index 26.30 (78.47 kg, 172.72 cm) bb ED Course: 02:31 Patient arrived in ED. ja2 03:33 Triage completed. bb 03:34 Arm band placed on Patient placed in an exam room, on a stretcher. bb 04:49 XRAY Hand RIGHT 3 View In Process Unspecified. EDMS 05:11 Poncho Castro MD is Attending Physician. [facility] 06:03 Agustin Bianchi PA is PHCP. [facility] 07:20 Leeroy Sanchez, RN is Primary Nurse. bp 08:00 Assist provider with laceration repair on dorsal aspect of proximal phalanx of right bp little finger that was 2.5 cm. or less using sutures. Set up tray. Performed by Agustin MALAVE Dressed with Malinda, Patient tolerated well. 08:18 Patient did not have IV access during this emergency room visit. bp 08:19 Patient has correct armband on for positive identification. Bed in low position. Call bp light in reach. Side rails up X2. 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 Exp: bb 11/08/2022. Lot #: [id number]. } Route: IM; Site: right deltoid; 07:22 Follow up: Response: No adverse reaction bp 07:21 Drug: Lidocaine (1 %) 20 ml Volume: 20 ml; Route: Infiltration; bp Outcome: 07:27 Discharge ordered by . jmm 08:19 Discharged to home ambulatory. bp 08:19 Condition: stable 08:19 Discharge instructions given to patient, Instructed on discharge instructions, follow up and referral plans. medication usage, wound care, Demonstrated understanding of instructions, follow-up care, medications, wound care, Prescriptions given X 1. 08:22 Patient left the ED. bp Signatures: Dispatcher [employer] EDMS Agustin Bianchi PA PA jmm Ballard, Brenda, RN RN Leeroy Riggs RN RN Poncho Torres MD MD mh7 Lashay Arriaga
[2021-06-27 08:29] VITALS: BP 137/79; TEMP 98.5; O2SAT 99
--- NOTE | 2021-06-27 21:32 | RAD REPORT ---
EXAM DESCRIPTION: RAD - Hand Right 3 View - 06/27/2021 4:49 am CLINICAL HISTORY: The patient is 30 years old and is Male; PAIN TECHNIQUE: Three views of the right hand. COMPARISON: No relevant prior studies available. FINDINGS: Bones/joints: Unremarkable. No acute fracture. No dislocation. Soft tissues: Unremarkable. No radiopaque foreign body. IMPRESSION: No acute findings. Electronically signed by: Annemarie Torres MD 06/27/2021 6:07 AM OPERATIONS LABEL CLERK Due to temporary technical issues with the PACS/Fluency reporting system, reports are being signed by the in house radiologists without review as a courtesy to insure prompt reporting. The interpreting radiologist is fully responsible for the content of the report.
== END 2021-06-27 08:22 | disposition home or self-care (01) ==
LOC: ER 02:16
PROC: 0JQJ0ZZ Repair Right Hand Subcutaneous Tissue and Fascia, Open Approach (ICD-10-PCS; principal; 2021-06-27)
DX: S61.216A Laceration without foreign body of right little finger without damage to nail, initial encounter (principal); Y93.71 Activity, boxing; Y92.9 Unspecified place or not applicable; Z23 Encounter for immunization
CPT/HCPCS: 90471; 90714; 99284

== ENCOUNTER → 2023-08-01 | Emergency (ER) | payer BC, SELFPAY ==
[~2023-08-01] MED LIST: NA CHLORIDE 0.9% 1,000 ML ONE; PROPRANOLOL HCL 40 MG TAB ONE
[2023-08-01 19:07] LABS: Absolute Lymphocytes (CBC) 3.9 K/uL (0.7-4.9); Hematocrit 43.8 % (39.6-49.0); Lymphocytes % 33.6 % (15.3-44.8); MCV 76.5 fL (80-100); MPV 8.2 fL (7.6-11.3); Platelets 226 thou/uL (152-406); RBC Red Blood Cell Count 5.72 M/uL (4.33-5.43)
[2023-08-01 19:12] LABS: Protime INR 0.97
[2023-08-01 19:23] LABS: ALT/SGPT 60 U/L (16-61); AST/SGOT 19 U/L (15-37); Alkaline Phosphatase 53 U/L (45-117); BUN Blood Urea Nitrogen 17 mg/dL (7-18); Bicarbonate 24 mEq/L (21-32); Bilirubin Total 0.4 mg/dL (0.2-1.0); Glomerular Filtration Rate 72 ml/min (=/>90); Glucose Level 120 mg/dL (74-106); Magnesium 2.3 mg/dL (1.6-2.4); NT PRO-BNP 27 pg/mL (<125); Potassium 3.6 mEq/L (3.5-5.1); Protein, Total 7.8 g/dL (6.4-8.2); Sodium Level 138 mEq/L (136-145); Troponin High Sensitivity 5.7 pg/mL (<58.9)
[2023-08-01 19:24] LABS: Bilirubin Direct < 0.1 mg/dL (0-0.2); Bilirubin Indirect, Calculated ND mg/dL (0.2-0.8)
--- NOTE | 2023-08-01 20:18 | RAD REPORT ---
EXAM DESCRIPTION: Benjy Single View08/01/2023 7:29 pm CLINICAL HISTORY: Chest pain COMPARISON: 2017 FINDINGS: The lungs appear clear of acute infiltrate. The heart is normal size IMPRESSION: No acute abnormalities displayed
[2023-08-01 20:35] LABS: Thyroid Stimulating Hormone 0.932 uIU/mL (0.358-3.740)
--- NOTE | 2023-08-01 20:42 | RAD REPORT ---
EXAM DESCRIPTION: CT - Angio Aorta For Dissection - 08/01/2023 8:27 pm CLINICAL HISTORY: . Chest and abd pain COMPARISON: 2018 TECHNIQUE: Computed tomography angiography of the chest, abdomen pelvis were obtained. 150 cc Isovue 370 was administered intravenously. Coronal and sagittal reconstruction were performed. MIP 3D reconstruction was performed All CT scans are performed using dose optimization technique as appropriate and may include automated exposure control or mA/KV adjustment according to patient size. FINDINGS: An aortic dissection is not seen. An aortic aneurysm is not displayed. The celiac, SMA and ALICIA are patent . A lung consolidation is not present. A pericardial effusion is not seen. A pleural effusion is not no wes. Fatty liver The spleen, pancreas,adrenals and kidneys demonstrate no significant abnormality. There no evidence diverticulitis. Normal appendix IMPRESSION: Negative for an aortic dissection.
--- NOTE | 2023-08-01 21:05 | ER ---
Nurse's Notes [facility] Name: Isreal Santos Age: 33 yrs Sex: Male : 1990 Arrival Date: 08/01/2023 Time: 18:37 Bed 6 Private MD: Diagnosis: Essential (primary) hypertension;Chest pain, unspecified Presentation: 08/01 18:50 Chief complaint: Patient states: "I've been having chest pain, SOB, and high BP since mb9 yesterday. Today my BP was 140/90s.". Coronavirus screen: Vaccine status: Patient reports receiving the 2nd dose of the covid vaccine. Ebola Screen: No symptoms or risks identified at this time. Initial Sepsis Screen: Does the patient meet any 2 criteria? No. Patient's initial sepsis screen is negative. Does the patient have a suspected source of infection? No. Patient's initial sepsis screen is negative. Risk Assessment: Do you want to hurt yourself or someone else? Patient reports no desire to harm self or others. Onset of symptoms was August 01, 2023. 18:50 Method Of Arrival: Ambulatory mb9 18:50 Acuity: DEVIKA 3 mb9 Triage Assessment: 18:51 General: Appears uncomfortable, Behavior is anxious. Pain: Complains of pain in chest mb9 Pain does not radiate. Pain currently is 2 out of 10 on a pain scale. Quality of pain is described as pressure, Pain began 2-3 days ago. Is intermittent. EENT: No signs and/or symptoms were reported regarding the EENT system. Neuro: Jain Agitation-Sedation Scale (RASS): 0 - Alert and Calm Level of Consciousness is awake, alert, obeys commands, Oriented to person, place, time, situation, Appropriate for age. Cardiovascular: Reports chest pain, shortness of breath, Heart tones S1 S2 present. Respiratory: Airway is patent Respiratory effort is even, unlabored, Respiratory pattern is regular, symmetrical. GI: Abdomen is flat, non-distended, Bowel sounds present X 4 quads. Abd is soft and non tender X 4 quads. : Derm: Skin is pink, warm \\T\\ dry. Musculoskeletal: Range of motion: intact in all extremities. Historical: - Allergies: 18:51 No Known Allergies; mb9 - Home Meds: 18:51 None [Active]; mb9 - PMHx: 18:51 None; mb9 - PSHx: 18:51 None; mb9 - Immunization history:: Adult Immunizations up to date. - Social history:: Smoking status: Patient denies any tobacco usage or history of. - Family history:: not pertinent. Screenin:53 [facility] ED Fall Risk Assessment (Adult) History of falling in the last 3 months, mb9 including since admission No falls in past 3 months (0 pts) Confusion or Disorientation No (0 pts) Intoxicated or Sedated No (0 pts) Impaired Gait No (0 pts) Mobility Assist Device Used No (0 pt) Altered Elimination No (0 pt) Score/Fall Risk Level 0 - 2 = Low Risk Oriented to surroundings, Maintained a safe environment, Educated pt \\T\\ family on fall prevention, incl call for assistance when getting out of bed. Abuse screen: Denies threats or abuse. Nutritional screening: No deficits noted. Tuberculosis screening: No symptoms or risk factors identified. Assessment: 18:52 Reassessment: see triage assessment. mb9 19:47 Reassessment: Patient appears in no apparent distress at this time. No changes from tm6 previously documented assessment. Patient and/or family updated on plan of care and expected duration. Pain level reassessed. Patient is alert, oriented x 3, equal unlabored respirations, skin warm/dry/pink. 21:16 Reassessment: Patient appears in no apparent distress at this time. Patient and/or jb4 family updated on plan of care and expected duration. Pain level reassessed. Patient is alert, oriented x 3, equal unlabored respirations, skin warm/dry/pink. Vital Signs: 18:50 BP 153 / 113; Pulse 105; Resp 18; Temp 98; Pulse Ox 100% ; Weight 88.45 kg; Height 5 mb9 ft. 6 in. ; Pain 2/10; 19:47 BP 140 / 95; Pulse 92; Pulse Ox 100% on R/A; Pain 0/10; tm6 18:50 Body Mass Index 31.47 (88.45 kg, 167.64 cm) mb9 18:50 Pain Scale: Adult mb9 19:47 Pain Scale: Adult tm6 ED Course: 18:40 Patient arrived in ED. mg5 18:50 Arm band placed on. mb9 18:51 Triage completed. mb9 18:52 No provider procedures requiring assistance completed. EKG done, by ED staff, reviewed mb9 by Gautam Martinez MD. Inserted saline lock: 20 gauge in left forearm, using aseptic technique. Patient maintains SpO2 saturation greater than 95% on room air. 18:53 Placed in gown. Bed in low position. Call light in reach. Side rails up X 1. Client mb9 placed on continuous cardiac and pulse oximetry monitoring. NIBP monitoring applied. youth nutritional monitor on. 18:54 Basic Metabolic Panel Sent. mb9 18:54 CBC with Diff Sent. mb9 18:54 LFT's Sent. mb9 18:54 Magnesium Sent. mb9 18:54 NT PRO-BNP Sent. mb9 18:54 PT-INR Sent. mb9 18:54 Troponin HS Sent. mb9 19:05 Neo Gilbert MD is Attending Physician. sp4 19:31 XRAY Chest (1 view) In Process Unspecified. EDMS 20:28 CT Aorta for Dissection In Process Unspecified. EDMS 21:03 Rohit Cabral MD is Referral Physician. sp4 21:16 IV discontinued, intact, bleeding controlled, No redness/swelling at site. Pressure jb4 dressing applied. Administered Medications: 19:37 Drug: NS 0.9% IV 1000 ml IV at 500 ml/hr continuous Route: IV; Rate: 500 ml/hr; Site: tm6 left hand; 19:37 Drug: Propranolol PO 40 mg PO once Route: PO; tm6 Medication: 21:16 VIS not applicable for this client. jb4 Outcome: 21:05 Discharge ordered by . sp4 21:16 Discharged to home ambulatory, with family, jb4 21:16 Condition: stable 21:16 Discharge instructions given to patient, Instructed on discharge instructions, follow up and referral plans. medication usage, Demonstrated understanding of instructions, follow-up care, medications, Prescriptions given X 1, 21:17 Patient left the ED. jb4 Signatures: Dispatcher [employer] EDHiram Black, RN RN jb4 Shasha Muñoz RN RN mb9 Neo Gilbert MD MD sp4 Mona Celestin mg5 Dakota Pinon RN RN tm6
--- NOTE | 2023-08-01 21:05 | EDPHYS ---
Physician Documentation [facility] Name: Isreal Santos Age: 33 yrs Sex: Male : 1990 Arrival Date: 08/01/2023 Time: 18:37 Bed 6 Private MD: ED Physician Neo Gilbert HPI: 08/01 19:05 This 33 yrs old Male presents to ER via Ambulatory with complaints of Chest Pain, sp4 Shortness Of Breath, High Blood Pressure. 08/02 04:27 Patient is 33-year-old male who has had several weeks of chest pains and also elevated sp4 blood pressures. Patient went to see his primary physician but was not put on any blood pressure meds. Patient states he was scheduled to do blood work but he has a blood pressure went off today and he developed midsternal chest pain. Chest pain has been intermittent for the past several weeks gotten worse in the last 2 days. Historical: - Allergies: 08/01 18:51 No Known Allergies; mb9 - Home Meds: 18:51 None [Active]; mb9 - PMHx: 18:51 None; mb9 - PSHx: 18:51 None; mb9 - Immunization history:: Adult Immunizations up to date. - Social history:: Smoking status: Patient denies any tobacco usage or history of. - Family history:: not pertinent. ROS: 08/02 04:27 Constitutional: Positive elevated blood pressure, positive chest pain sp4 All other systems are negative, Exam: 08/01 21:07 ECG was reviewed by the Attending Physician. EKG 1847 sinus rhythm at a rate of 100, sp4 rightward axis, no ST elevation or depression 08/02 04:27 Constitutional: This is a well developed, well nourished patient who is awake, alert, sp4 and in no acute distress. Head/Face: Normocephalic, atraumatic. Eyes: Pupils equal round and reactive to light, extra-ocular motions intact. Lids and lashes normal. Conjunctiva and sclera are not injected. Cornea within normal limits. Periorbital areas with no swelling, redness, or edema. ENT: Nares patent. No nasal discharge, no septal abnormalities noted. Tympanic membranes are normal and external auditory canals are clear. Oropharynx with no redness, swelling, or masses, exudates, or evidence of obstruction, uvula midline. Mucous membranes moist. Neck: Trachea midline, no thyromegaly or masses palpated, and no cervical lymphadenopathy. Supple, full range of motion without nuchal rigidity, or vertebral point tenderness. Chest/axilla: Normal chest wall appearance and motion. Nontender with no deformity. No lesions are appreciated. Cardiovascular: Regular rate and rhythm with a normal S1 and S2. No gallops, murmurs, or rubs. Normal PMI, no JVD. No pulse deficits. Respiratory: Lungs have equal breath sounds bilaterally, clear to auscultation and percussion. No rales, rhonchi or wheezes noted. No increased work of breathing, no retractions or nasal flaring. Abdomen/GI: Soft, non-tender, with normal bowel sounds. No distension or tympany. No guarding or rebound. No evidence of tenderness throughout. Back: No spinal tenderness. No costovertebral tenderness. Skin: Warm, dry with normal turgor. Normal color with no rashes, no lesions, and no evidence of cellulitis. MS/ Extremity: Pulses equal, no cyanosis. Neurovascular intact. Full, normal range of motion. Neuro: Awake and alert, GCS 15, oriented to person, place, time, and situation. Cranial nerves II-XII grossly intact. Motor strength 5/5 in all extremities. Sensory grossly intact. Psych: Awake, alert, with orientation to person, place and time. Behavior, mood, and affect are within normal limits Vital Signs: 08/01 18:50 BP 153 / 113; Pulse 105; Resp 18; Temp 98; Pulse Ox 100% ; Weight 88.45 kg; Height 5 mb9 ft. 6 in. ; Pain 2/10; 19:47 BP 140 / 95; Pulse 92; Pulse Ox 100% on R/A; Pain 0/10; tm6 18:50 Body Mass Index 31.47 (88.45 kg, 167.64 cm) mb9 18:50 Pain Scale: Adult mb9 19:47 Pain Scale: Adult tm6 MDM: 18:49 Patient medically screened. sp3 08/02 04:27 Differential diagnosis: abnormal EKG, acute pericarditis, anxiety, coronary artery sp4 disease chest wall pain, congestive heart failure. HEART Score: History: Slightly Suspicious (0), ECG: Normal (0), Age: < or = 45 years (0), Risk Factors: No Risk Factors Known (0), Troponin: < or = 1 x Normal Limit (0), Total Score = 0. Data reviewed: vital signs, nurses notes, lab test result(s), EKG, radiologic studies, CT scan. ED course: Basically unremarkable. Patient stable for discharge home with cardiology follow-up. Will initiate metoprolol succinate 25 mg daily. . 08/01 18:49 Order name: Basic Metabolic Panel; Complete Time: 19:27 3 08/01 18:49 Order name: CBC with Diff; Complete Time: 19:27 08/01 18:49 Order name: LFT's; Complete Time: 19:27 08/01 18:49 Order name: Magnesium; Complete Time: 19:27 08/01 18:49 Order name: NT PRO-BNP; Complete Time: 19:27 08/01 18:49 Order name: PT-INR; Complete Time: 19:27 08/01 18:49 Order name: Troponin HS; Complete Time: 19:27 3 08/01 19:28 Order name: TSH; Complete Time: 20:56 4 08/01 19:28 Order name: T4 Free; Complete Time: 20:56 4 08/01 18:49 Order name: XRAY Chest (1 view); Complete Time: 20:56 08/01 19:27 Order name: CT Aorta for Dissection; Complete Time: 20:56 4 08/01 18:49 Order name: EKG; Complete Time: 18:50 08/01 18:49 Order name: Cardiac monitoring; Complete Time: 18:50 08/01 18:49 Order name: EKG - Nurse/Tech; Complete Time: 18:50 08/01 18:49 Order name: IV Saline Lock; Complete Time: 18:55 08/01 18:49 Order name: Labs collected and sent; Complete Time: 18:55 sp3 08/01 18:49 Order name: O2 Per Protocol; Complete Time: 18:50 08/01 18:49 Order name: O2 Sat Monitoring; Complete Time: 18:50 sp3 EC/04 21:07 Rate is 100 beats/min. Rhythm is regular, Normal Sinus Rhythm. QRS [place] is Normal. DC sp4 interval is normal. QRS interval is normal. QT interval is normal. No Q waves. No ST changes noted. Clinical impression: No evidence of ischemia. Interpreted by me. Reviewed by me. Administered Medications: 19:37 Drug: NS 0.9% IV 1000 ml IV at 500 ml/hr continuous Route: IV; Rate: 500 ml/hr; Site: tm6 left hand; 19:37 Drug: Propranolol PO 40 mg PO once Route: PO; tm6 Disposition Summary: 08/01/23 21:05 Discharge Ordered Problem: new sp4 Symptoms: have improved sp4 Condition: Stable sp4 Diagnosis - Essential (primary) hypertension sp4 - Chest pain, unspecified sp4 Followup: sp4 - With: Rohit Cabral MD - When: 7 - 10 days - Reason: Recheck today's complaints Discharge Instructions: - Discharge Summary Sheet sp4 - Hypertension, Adult sp4 Forms: - Patient Portal Instructions sp4 Prescriptions: - metoprolol succinate 25 mg Oral Tablet, Extended Release 24 hr - take 1 tablet ORAL route daily; 60 tablet; Refills: 0, Product Selection sp4 Permitted Signatures: Dispatcher [employer] EDGautam Perez MD MD sp3 Shasha Muñoz RN RN mb9 Neo Gilbert MD MD sp4 Dakota Pinon RN RN tm6
[2023-08-02 02:27] VITALS: BP 140/95; TEMP 98; O2SAT 100
--- NOTE | 2023-08-02 14:58 | EKG ---
Test Date: 2023-08-01 Test Time: 18:47:01 Flight Service Agent: CARLI MEASUREMENT RESULTS: Intervals: Rate: 100 ND: 128 QRSD: 88 QT: 336 QTc: 433 [place]: P: 46 ND: 128 QRS: 90 T: -10 INTERPRETIVE STATEMENTS: Normal sinus rhythm Rightward axis Possible Inferior infarct, age undetermined Abnormal ECG Compared to ECG 04/26/2018 09:04:07 Right-axis deviation now present Myocardial infarct finding now present Sinus arrhythmia no longer present T-wave abnormality no longer present Electronically Signed On 08-02-23 14:57:14 PHILOSOPHY LECTURER by Rohit Cabral
== END ==
LOC: ER 18:37
DX: I10 Essential (primary) hypertension (principal)
CPT/HCPCS: 93005; 85025; 80048; 36415; 83735; 85610; 80076; 84443; 84484; 84439; 83880; 71275; 74175; 71045; Q9967; J7030

== ENCOUNTER 2024-08-01 11:18 | Emergency (ER) | payer BC ==
[2024-08-01 12:19] LABS: Absolute Lymphocytes (CBC) 2.6 K/uL (0.7-4.9); Absolute Monocytes 0.9 K/uL (0.1-1.3); Absolute Neutrophil 5.6 K/uL (1.8-8.0); Basophils % 0.3 % (0-1.3); Eosinophils % 0.4 % (0-4.4); Hemoglobin 15.4 g/dL (13.6-17.9); Lymphocytes % 28.4 % (15.3-44.8); MCH 25.4 pg (27.0-35.0); MCHC 34.2 g/dL (32.0-36.0); MCV 74.3 fL (80-100); MPV 8.9 fL (7.6-11.3); Monocytes % 9.8 % (3.3-12.3); Neutrophils % 61.1 % (41.7-73.7); Nucleated Red Blood Cells % 0.1 % (0-0); Platelets 210 thou/uL (152-406); RBC Red Blood Cell Count 6.06 M/uL (4.33-5.43)
[2024-08-01 12:37] LABS: ALT/SGPT 58 U/L (16-61); AST/SGOT 20 U/L (15-37); Albumin 3.9 g/dL (3.4-5.0); Albumin/Globulin Ratio 1.1 (1.1-1.8); Alkaline Phosphatase 51 U/L (45-117); Anion Gap 6.8 mEq/L (5.0-15.0); BUN Blood Urea Nitrogen 14 mg/dL (7-18); Bicarbonate 28 mEq/L (21-32); Bilirubin Total 0.4 mg/dL (0.2-1.0); Globulin 3.6 g/dL (2.3-3.5); Glomerular Filtration Rate 83 ml/min (=/>90); Glucose Level 119 mg/dL (74-106); Potassium 3.8 mEq/L (3.5-5.1); Protein, Total 7.5 g/dL (6.4-8.2); Sodium Level 137 mEq/L (136-145)
--- NOTE | 2024-08-01 12:41 | RAD REPORT ---
EXAMINATION: ONE VIEW CHEST XR CLINICAL INDICATION: Male, 34 years old.,CHEST PAIN TECHNIQUE: Frontal chest projection is submitted. Examination is limited by patient positioning and t echnique. COMPARISON: 08/01/2023 FINDINGS: The lungs are well inflated and clear. No pneumothorax or sizable effusion. The heart is normal in s ize. Mediastinal contours are unremarkable. IMPRESSION: No acute intrathoracic abnormalities.
[2024-08-01 12:44] LABS: Bilirubin Direct < 0.2 mg/dL (0-0.2); Bilirubin Indirect, Calculated 0.2 mg/dL (0.2-0.8); Troponin High Sensitivity < 3.0 pg/mL (<58.9)
[2024-08-01 13:08] LABS: Specific Gravity 1.025 (1.005-1.030); Sqamous Epithelial <5 /HPF (None Seen); Urine Bacteria None Seen /HPF (<20); Urine Bilirubin NEGATIVE (Negative); Urine Blood 1+ (Negative); Urine Clarity Turbid (Clear); Urine Color Light-Yellow (Yellow); Urine Culture Reflex Order NOT NEEDED; Urine Glucose 2+ (Negative); Urine Ketones NEGATIVE (Negative); Urine Micro Reflex YN NO BILL MICROSCOPIC; Urine Mucus Slight /HPF (None Seen); Urine Nitrite NEGATIVE (Negative); Urine Protein NEGATIVE (Negative); Urine RBC 21-50 /HPF (None Seen); Urine Urobilinogen Normal (Normal); Urine WBC <5 /HPF (<5); Urine pH 7.5 (5.0-7.0)
--- NOTE | 2024-08-01 14:07 | ER ---
Nurse's Notes [facility] Name: Isreal Santos Age: 34 yrs Sex: Male : 1990 Arrival Date: 08/01/2024 Time: 11:18 Bed 19 Private MD: Diagnosis: Chest pain, unspecified;Essential (primary) hypertension;Hematuria, unspecified Presentation: 08/01 11:38 Chief complaint: Patient states: High blood pressure. blood in urine since this jl7 morning, hx of HTN. Coronavirus screen: At this time, the client does not indicate any symptoms associated with coronavirus-19. Ebola Screen: No symptoms or risks identified at this time. Initial Sepsis Screen: Does the patient meet any 2 criteria? No. Patient's initial sepsis screen is negative. Does the patient have a suspected source of infection? No. Patient's initial sepsis screen is negative. Risk Assessment: Do you want to hurt yourself or someone else? Patient reports no desire to harm self or others. Onset of symptoms was August 01, 2024. 11:38 Method Of Arrival: Ambulatory jl7 11:38 Acuity: DEVIKA 3 jl7 Triage Assessment: 11:40 General: Appears in no apparent distress. uncomfortable, Behavior is calm, cooperative, jl7 appropriate for age. Pain: Complains of pain in pinching in chest x months Pain currently is 1 out of 10 on a pain scale. : Reports pain with urination, blood in urine. Historical: - Allergies: 11:40 No Known Allergies; jl7 - PMHx: 11:40 Hypertensive disorder; jl7 - PSHx: 11:40 None; jl7 - Immunization history:: Adult Immunizations unknown. - Infectious Disease History:: Denies. - Social history:: Smoking status: Reported history of juuling and/or vaping. Screenin:50 [facility] ED Fall Risk Assessment (Adult) History of falling in the last 3 months, me1 including since admission No falls in past 3 months (0 pts) Confusion or Disorientation No (0 pts) Intoxicated or Sedated No (0 pts) Impaired Gait No (0 pts) Mobility Assist Device Used No (0 pt) Altered Elimination No (0 pt) Score/Fall Risk Level 0 - 2 = Low Risk Maintained a safe environment, Provided non-skid footwear, Hourly rounding (assess needs \T\ fall precautionary measures) done. Abuse screen: Denies threats or abuse. Nutritional screening: No deficits noted. Tuberculosis screening: No symptoms or risk factors identified. Assessment: 11:50 General: Appears in no apparent distress. well groomed, well developed, well nourished, me1 Behavior is calm, cooperative, appropriate for age, Reports High blood pressure. blood in urine since this morning, hx of HTN. Pain: Denies pain. Neuro: Level of Consciousness is awake, alert, obeys commands, Oriented to person, place, time, situation, Appropriate for age. Cardiovascular: Patient's skin is warm and dry. Respiratory: Airway is patent Respiratory effort is even, unlabored, Respiratory pattern is regular, symmetrical. GI: No deficits noted. : Reports blood in urine since this morning. EENT: No signs and/or symptoms were reported regarding the EENT system. Derm: Skin is intact, is healthy with good turgor, Skin is pink, warm \T\ dry. Musculoskeletal: No signs and/or symptoms reported regarding the musculoskeletal system. Vital Signs: 11:38 BP 145 / 102; Pulse 99; Resp 15; Temp 97.5; Pulse Ox 98% ; Weight 86.18 kg; Height 5 jl7 ft. 9 in. ; Pain 1/10; 13:00 BP 138 / 96; Pulse 84; Resp 16; Pulse Ox 98% ; me1 14:00 BP 116 / 96; Pulse 80; Resp 16; Temp 98.3; Pulse Ox 99% ; me1 11:38 Body Mass Index 28.06 (86.18 kg, 175.26 cm) jl7 11:38 Pain Scale: Adult jl7 ED Course: 11:20 Patient arrived in ED. mr 11:21 Osmani Archibald MD is Attending Physician. rt 11:40 Triage completed. jl7 11:40 Arm band placed on right wrist. jl7 11:50 Patient has correct armband on for positive identification. Bed in low position. Call me1 light in reach. Side rails up X2. Provided Education on: POC. Verbalized understanding.. Client placed on continuous cardiac and pulse oximetry monitoring. NIBP monitoring applied. Pulse ox on. NIBP on. 11:50 No provider procedures requiring assistance completed. me1 12:08 Initial lab(s) drawn, by me, sent to lab. EKG done, by ED staff, reviewed by Osmani Archibald MD. Inserted saline lock: 22 gauge in right antecubital area, using aseptic technique. Blood collected. Flushed with 10 mL NS. 12:24 XRAY Chest (1 view) In Process Unspecified. EDMS 12:45 Alexandria Cleveland, RN is Primary Nurse. me1 12:50 UAM Sent. me1 12:50 Urine collected: clean catch specimen, blood tinged. me1 14:29 IV discontinued, intact, bleeding controlled, No redness/swelling at site. Pressure me1 dressing applied. Administered Medications: No medications were administered Medication: 11:50 VIS not applicable for this client. me1 Outcome: 14:07 Discharge ordered by . rt 14:29 Discharged to home ambulatory, me1 14:29 Condition: stable 14:29 Discharge instructions given to patient, Instructed on discharge instructions, follow up and referral plans. medication usage, Demonstrated understanding of instructions, follow-up care, medications, Prescriptions given X 1, 14:32 Patient left the ED. me1 Signatures: Dispatcher [employer] EDWA Shasha Thayer, Reg Reg mr NathFaisal RN RN jl7 Nelly Pagan RN RN ll1 Osmani Archibald MD MD rt Alexandria Cleveland, RN RN me1 Corrections: (The following items were deleted from the chart) 13:13 11:38 Chief complaint: Patient states: High blood pressure. blood in urine since this me1 morning, hx of HTN. jl7
--- NOTE | 2024-08-01 14:07 | EDPHYS ---
Physician Documentation [facility] Name: Isreal Santos Age: 34 yrs Sex: Male : 1990 Arrival Date: 08/01/2024 Time: 11:18 Bed 19 Private MD: ED Physician Osmani Archibald HPI: 08/01 12:06 This 34 yrs old Male presents to ER via Ambulatory with complaints of High Blood rt Pressure, Urinary Problem. 12:06 Patient with history of hypertension reports his blood pressure has been mildly rt elevated, reports compliance with his blood pressure medications but is not had his doses adjusted recently. Patient states that he gets chest pain only when he vapes, none currently. Also reports having pain with urination, reports passing a small, "slimy" blood clot earlier today. Denies other acute complaints at this time, symptoms are moderate in severity, no other aggravating alleviating factors.. Historical: - Allergies: 11:40 No Known Allergies; jl7 - PMHx: 11:40 Hypertensive disorder; jl7 - PSHx: 11:40 None; jl7 - Immunization history:: Adult Immunizations unknown. - Infectious Disease History:: Denies. - Social history:: Smoking status: Reported history of juuling and/or vaping. ROS: 12:06 Constitutional: Negative for fever, chills, and weight loss, Respiratory: Negative for rt shortness of breath, cough, wheezing, and pleuritic chest pain, Abdomen/GI: Negative for abdominal pain, nausea, vomiting, diarrhea, and constipation, MS/Extremity: Negative for injury and deformity, Skin: Negative for injury, rash, and discoloration, 12:06 Cardiovascular: Positive for chest pain, Negative for edema, 12:06 : Positive for hematuria, burning with urination, Exam: 12:06 Constitutional: This is a well developed, well nourished patient who is awake, alert, rt and in no acute distress. Head/Face: Normocephalic, atraumatic. Chest/axilla: Normal chest wall appearance and motion. Nontender with no deformity. No lesions are appreciated. Cardiovascular: Regular rate and rhythm with a normal S1 and S2. No gallops, murmurs, or rubs. Normal PMI, no JVD. No pulse deficits. Respiratory: Lungs have equal breath sounds bilaterally, clear to auscultation and percussion. No rales, rhonchi or wheezes noted. No increased work of breathing, no retractions or nasal flaring. Abdomen/GI: Soft, non-tender, with normal bowel sounds. No distension or tympany. No guarding or rebound. No evidence of tenderness throughout. Skin: Warm, dry with normal turgor. Normal color with no rashes, no lesions, and no evidence of cellulitis. MS/ Extremity: Pulses equal, no cyanosis. Neurovascular intact. Full, normal range of motion. Neuro: Awake and alert, GCS 15, oriented to person, place, time, and situation. Cranial nerves II-XII grossly intact. Motor strength 5/5 in all extremities. Sensory grossly intact. Cerebellar exam normal. Normal gait. 12:11 ECG was reviewed by the Attending Physician. rt Vital Signs: 11:38 BP 145 / 102; Pulse 99; Resp 15; Temp 97.5; Pulse Ox 98% ; Weight 86.18 kg; Height 5 jl7 ft. 9 in. ; Pain 1/10; 13:00 BP 138 / 96; Pulse 84; Resp 16; Pulse Ox 98% ; me1 14:00 BP 116 / 96; Pulse 80; Resp 16; Temp 98.3; Pulse Ox 99% ; me1 11:38 Body Mass Index 28.06 (86.18 kg, 175.26 cm) jl7 11:38 Pain Scale: Adult jl7 MDM: 11:38 Medical Screening Exam initiated rt 15:29 Differential diagnosis: Nonspecific chest pain, pneumonia, ACS, UTI. Data reviewed: rt vital signs, nurses notes, lab test result(s), EKG, radiologic studies. Consideration of Admission/Observation Escalation of care including admission/observation considered. Given chronicity of symptoms, onset of enzymes is sufficient to rule out acute coronary syndrome, low risk by heart criteria, stable for outpatient care.. I considered the following discharge prescriptions or medication management in the emergency department Medications were administered in the Emergency Department. See MAR. Independent interpretation of the following test(s) in the Emergency Department X-Ray: My interpretation is No infiltrate seen on my interpretation of x-ray images. Care significantly affected by the following chronic conditions: Hypertension. Scoring Tools HEART Score: History: Slightly Suspicious (0) ECG: Normal (0) Age: < or = 45 years (0) Risk Factors: 1 or 2 Risk factors (1) Troponin: < or = 1 x Normal limit (0) Total Score = 1. Counseling: I had a detailed discussion with the patient and/or guardian regarding the historical points, exam findings, and any diagnostic results supporting the discharge/admit diagnosis, lab results, radiology results, the need for outpatient follow up. Response to treatment: the patient's symptoms have markedly improved after treatment. 08/01 11:47 Order name: Basic Metabolic Panel; Complete Time: 13: rt 08/01 11:47 Order name: CBC with Diff; Complete Time: 13: rt 08/01 11:47 Order name: LFT's; Complete Time: : rt 08/01 11:47 Order name: Troponin HS; Complete Time: : rt 08/01 11:47 Order name: UAM; Complete Time: 13: rt 08/01 11:47 Order name: XRAY Chest (1 view); Complete Time: 13: rt 08/01 11:47 Order name: EKG; Complete Time: 11:48 rt 08/01 11:47 Order name: Cardiac monitoring; Complete Time: 12:50 rt 08/01 11:47 Order name: EKG - Nurse/Tech; Complete Time: 12:08 rt 08/01 11:47 Order name: IV Saline Lock; Complete Time: 12:08 rt 08/01 11:47 Order name: Labs collected and sent; Complete Time: 12:08 rt 08/01 11:47 Order name: O2 Per Protocol; Complete Time: 12:50 rt 08/01 11:47 Order name: O2 Sat Monitoring; Complete Time: 12:50 rt EC:11 Rate is 82 beats/min. Rhythm is regular, Normal Sinus Rhythm with No ectopy. QRS [place] rt is Normal. VA interval is normal. QRS interval is normal. QT interval is normal. No Q waves. No ST changes noted. Interpreted by me. Administered Medications: No medications were administered Disposition Summary: 08/01/24 14:07 Discharge Ordered Notes: Location: Home rt Problem: new rt Symptoms: have improved rt Condition: Stable rt Diagnosis - Chest pain, unspecified rt - Essential (primary) hypertension rt - Hematuria, unspecified rt Followup: rt - With: Private Physician - When: 2 - 3 days - Reason: Discharge Instructions: - Discharge Summary Sheet rt - Nonspecific Chest Pain, Adult rt - Hematuria, Adult rt - Hypertension, Adult rt Forms: - Medication Reconciliation Form rt - Antibiotic Education rt - Prescription Opioid Use rt - Patient Portal Instructions rt - Leadership Thank You Letter rt Prescriptions: - Macrobid 100 mg Oral Capsule - take 1 capsule ORAL route every 12 hours for 7 days; 14 capsule; Refills: 0, rt Product Selection Permitted Signatures: Dispatcher [employer] Faisal Cardenas RN RN jl7 Osmani Archibald MD MD rt
[2024-08-01 14:53] VITALS: BP 116/96; TEMP 98.3; O2SAT 99
--- NOTE | 2024-08-02 11:31 | EKG ---
Test Date: 2024-08-01 Test Time: 12:00:22 Molding Room Supervisor: VIVIEN MEASUREMENT RESULTS: Intervals: Rate: 82 [place]: 130 QRSD: 80 QT: 360 QTc: 420 [place]: P: 31 [place]: 130 QRS: 72 T: 5 INTERPRETIVE STATEMENTS: Normal sinus rhythm Cannot rule out Inferior infarct, age undetermined Abnormal ECG Compared to ECG 08/01/2023 18:47:01 Right-axis deviation no longer present Myocardial infarct finding still present Electronically Signed On 08-02-24 11:28:20 HAND BOOKED FOLDER AND STITCHER by Sushil Tyson
== END 2024-08-01 14:32 | disposition home or self-care (01) ==
LOC: ER 11:18
DX: R07.9 Chest pain, unspecified (principal); I10 Essential (primary) hypertension; R31.9 Hematuria, unspecified
CPT/HCPCS: 36415; 71045; 80048; 80076; 81001; 84484; 85025; 93005; 99284